=== PATIENT | female | born 1940 | race Caucasian/White ===

== ENCOUNTER 2017-09-28 07:03 | Day surgery (SDC) | payer MEDICARE ==
[~2017-09-28] VITALS: Ht 154.9 cm; Wt 70.3 kg
[~2017-09-28 07:03] MED LIST: ASPIR 8181 MG PO; GLIMEPIRIDE2 MG PO; LISINOPRIL10 MG PO; METFORMIN HCL500 MG PO; MULTIVITAMINS1 EAC7 PO; MYRBETRIQ50 MG PO; NITROFURANTOIN50 MG PO; PANTOPRAZOLE SO20 MG PO; PRAMIPEXOLE DI0.5 MG PO; SIMVASTATIN20 MG PO; STOOL SOFTENER100 MG PO; VITAMIN B-12100 MCG PO; VITAMIN C500 M5 PO; VITAMIN D50000 UNI1 PO; VITAMIN E400 UNI1 PO
--- NOTE | 2017-09-28 08:59 | NUR ---
09/28/17 0859 Cira Parker 0850 PT ARRIVED TO PACU ASLEEP, RESP EVEN AND UNLABORED. 0855 PT WOKE UP WITH STIMULI AND REORIENTED TO PACU. DENIES PAIN, BACK TO SLEEP.
--- NOTE | 2017-09-28 10:50 | OR ---
[facility] [address], [place] [address] Signed DATE OF OPERATION: 09/28/2017 SURGEON: Fabricio Benedict MD COLONOSCOPY REPORT PREOPERATIVE DIAGNOSES: 1. Brother with a history of colonic polyps. 2. Moderate pandiverticulosis. 3. Long redundant narrow colon. 4. Moderate internal hemorrhoids. PROCEDURE: Colonoscopy without biopsy. ESTIMATED BLOOD LOSS: None. INDICATIONS: Dalila is a 76-year-old female originally from [place], [place]. She is here now with her family. Her brother was known to have colonic polyps. Dalila is also known to have diverticulosis. Her last colonoscopy was more than 10 years ago while she lived in [place]. Consequently, her primary care provider asked her to come see me for a followup colonoscopy. She tells me she has no lower GI complaints. In the office, I gave Dalila a pamphlet on colonoscopy and we reviewed that together along with the risks including, but not limited to gas bloating, crampy abdominal pain, bleeding, perforation, requiring surgery, and missed diagnosis. We also discussed the need for IV conscious sedation. She had expressed understanding and wished to proceed. PROCEDURE NOTE: Dalila was taken into our endoscopy suite and placed in the left lateral decubitus position. She was given 8 mg of Versed and 150 mcg of fentanyl. A digital rectal exam was performed and this was unremarkable. The adult colonoscope was introduced and advanced under direct visualization of camera. Dalila is small of build and her colon is long, narrow and redundant. She also has pandiverticulosis. It took me a few minutes to get around the rectosigmoid junction and another few minutes to get up through the sigmoid colon and even then her left colon, even the transverse colon are pretty narrow and the diverticula continued. We have eventually made it around a difficult hepatic flexure and down into the cecum itself. Her prep was good. We took pictures throughout for photodocumentation. The scope was slowly withdrawn and she does have right-sided Electronically Signed By: FABRICIO BENEDICT MD 09/28/17 1050 PATIENT NAME: DALILA TURNER OPERATIVE REPORT DATE OF : 38 REPORT #: [id number] PHYSICIAN: FABRICIO BENEDICT MD PCP: BRIAN PARIKH MD REPORT IS CONFIDENTIAL AND NOT TO BE RELEASED WITHOUT AUTHORIZATION [facility] [address] [place] [id number] Signed diverticula. We eventually made our way back to the rectum and the rectum was unremarkable. Upon retroflexion of the scope, she does have moderate internal hemorrhoids. After this, the gas was suctioned out and the colonoscope removed. Dalila tolerated the procedure quite well. RECOMMENDATIONS: Dalila can follow up in 5 years for repeat colonoscopy due to her brother's history of colonic polyps. MD ZACARIAS Boss/IMANIL /[id number] cc: Brian Parikh MD Copies: BRIAN PARIKH MD ~ Electronically Signed By: FABRICIO BENEDICT MD 09/28/17 1050 PATIENT NAME: JOHNNYDALILA Flaquita OPERATIVE REPORT DATE OF : 38 REPORT #: [id number] PHYSICIAN: FABRICIO BENEDICT MD PCP: BRIAN PARIKH MD REPORT IS CONFIDENTIAL AND NOT TO BE RELEASED WITHOUT AUTHORIZATION
== END 2017-09-28 09:50 | disposition home or self-care (01) ==
LOC: DS 07:03 → OPS 07:03 → DS 08:15 → OPS 08:15
PROVIDERS: Colon & Rectal Surgery
PROC: 0DJD8ZZ Inspection of Lower Intestinal Tract, Via Natural or Artificial Opening Endoscopic (ICD-10-PCS; principal; 2017-09-28 08:15)
DX: Z12.11 Encounter for screening for malignant neoplasm of colon (principal); K64.8 Other hemorrhoids; K57.30 Diverticulosis of large intestine without perforation or abscess without bleeding; K63.89 Other specified diseases of intestine; I10 Essential (primary) hypertension; E78.5 Hyperlipidemia, unspecified; E55.9 Vitamin D deficiency, unspecified; E11.9 Type 2 diabetes mellitus without complications; D64.9 Anemia, unspecified; Z83.71 Family history of colonic polyps; Z79.82 Long term (current) use of aspirin; Z79.84 Long term (current) use of oral hypoglycemic drugs; Z79.899 Other long term (current) drug therapy
CPT/HCPCS: 99153; G0500; J2250; J3010; J7120

== ENCOUNTER 2023-06-10 11:53 | Day surgery (SDC) | payer MEDICARE, OTHER ==
[~2023-06-10 11:53] MED LIST changes: +PEPCID40 MG PO; +ROPINIROLE HCL0.5 MG PO
--- NOTE | 2023-06-10 16:01 | OR ---
[facility] [address] [place], [place] [address] Signed DATE OF OPERATION: 06/10/2023 SURGEON: Lesa Caldwell MD PREOPERATIVE DIAGNOSES: 1. A 2 cm well defined area of erythema, suspicious for bladder lesion. 2. History of pelvic organ prolapse, status post repair. 3. Recurrent urinary tract infections. POSTOPERATIVE DIAGNOSES: 1. No evidence of bladder lesion on cystoscopy today. 2. Recurrent urinary tract infection. 3. History of pelvic organ prolapse, status post repair. NAMES OF PROCEDURES: 1. Diagnostic cystoscopy. 2. Pelvic examination. ANESTHESIA: 10 mL of 2% lidocaine gel. DRAINS: None. SPECIMENS: None. INDICATIONS FOR PROCEDURE: Ms. Turner is a very pleasant 82-year-old female, who is very well known to me. She has a history of severe pelvic organ prolapse that had worsened to the point that she underwent definitive repair almost two years ago. Her prolapse had been promoting recurrent urinary tract infections for many years. Since her prolapse repair, the frequency of urinary tract infections has significantly diminished. She underwent diagnostic cystoscopy for evaluation of recurrent urinary tract infections approximately four months ago. At that time, there was a well circumscribed 2 cm area of erythema on the left lateral wall associated with a bladder diverticulum that appeared suspicious for possible bladder lesion. At this time, the patient elected to undergo repeat cystoscopy versus undergo cystoscopy with bladder biopsy at this time. She presents today to undergo repeat evaluation of this area of suspicion. Electronically Signed By: LESA CALDWELL MD 06/10/23 1601 PATIENT NAME: MEAGHAN TURNER OPERATIVE REPORT DATE OF : 38 REPORT #: [id number] PHYSICIAN: LESA CALDWELL MD PCP: MERLIN ESQUIVEL MD REPORT IS CONFIDENTIAL AND NOT TO BE RELEASED WITHOUT AUTHORIZATION [facility] [address] [place], [place] [address] Signed OPERATIVE FINDINGS: 1. On cystoscopy, there was no evidence of any overt papillary tumors or bladder stones. There is diffuse grade 2-3 bladder wall trabeculation including a small bladder diverticulum located on the left lateral wall of the bladder. The prior area of erythema on the left lateral wall is not seen on today's cystoscopy. In fact, there is no evidence of any suspicious areas of erythema on today's procedure. Bilateral ureteral orifices are in their normal anatomic location effluxing clear urine. 2. Pelvic examination reveals excellent apical support. She also has excellent posterior support after her repair. Anterior support is also quite good as well. DESCRIPTION OF PROCEDURE: After informed consent was obtained, the patient was taken back to the procedure room. She was placed in the dorsal lithotomy position and her genitalia were prepped and draped in a standard sterile fashion. A flexible cystoscope was passed through her urethra and into her bladder under direct visualization. Panendoscopic views of the bladder were then obtained. Please see above findings. I then slowly withdrew the camera to get an adequate look at her urethra. Once the camera was removed, the patient was straight cathed using an 18-Kiswahili red rubber catheter to completely empty her bladder. Pelvic examination was then performed. Please see above findings. The procedure was then terminated. The patient tolerated the procedure well without any complication. She will now be transferred to the postanesthesia care unit in stable condition. DISPOSITION: I discussed the details of today's procedure and my findings with the patient's daughter, Daniela today. I informed Daniela that I see no evidence of any suspicious areas of erythema in her bladder so that prior area of erythema must have been a result of transient bladder wall irritation. She seems to be emptying her bladder a lot better and the frequency of her recurrent urinary tract infections has diminished significantly. I answered all of the patient and her daughter's questions to their satisfaction. At this time, the patient will follow up on an as-needed basis. MD MERVAT Sousa/IMANIL /[id number] Electronically Signed By: LESA CALDWELL MD 06/10/23 1601 PATIENT NAME: MEAGHAN TURNER OPERATIVE REPORT DATE OF : 38 REPORT #: [id number] PHYSICIAN: LESA CALDWELL MD PCP: MERLIN ESQUIVEL MD REPORT IS CONFIDENTIAL AND NOT TO BE RELEASED WITHOUT AUTHORIZATION [facility] [address] [place] [id number] Signed Copies: ~ Electronically Signed By: LESA CALDWELL MD 06/10/23 1601 PATIENT NAME: MEAGHAN TURNER OPERATIVE REPORT DATE OF : 38 REPORT #: [id number] PHYSICIAN: LESA CALDWELL MD PCP: MERLIN ESQUIVEL MD REPORT IS CONFIDENTIAL AND NOT TO BE RELEASED WITHOUT AUTHORIZATION
== END 2023-06-10 14:00 | disposition home or self-care (01) ==
LOC: OPS 11:53 → DS 12:05 → OPS 13:00
PROVIDERS: ATTEND Urology
PROC: 0TJB8ZZ Inspection of Bladder, Via Natural or Artificial Opening Endoscopic (ICD-10-PCS; principal; 2023-06-10 13:00)
DX: N39.0 Urinary tract infection, site not specified (principal); N32.81 Overactive bladder; N32.3 Diverticulum of bladder
CPT/HCPCS: 51700; 52287

== ENCOUNTER 2024-12-16 20:59 | Emergency (ER) | payer MEDICARE, OTHER ==
[~2024-12-16] VITALS: Ht 154.9 cm; Wt 78.0 kg
[2024-12-16] MEDS ORDERED: DONEPEZIL HCL10 MG PO (21:46)
[2024-12-16] MEDS ORDERED: OXYBUTYNIN CHLO10 MG PO (21:46)
[2024-12-16] MEDS ORDERED: ESCITALOPRAM OXA5 MG PO (21:46)
[2024-12-16 22:36] LABS: BASOPHILS 0.1 % (0.1-1.2); EOSINOPHILS 0.3 % (0.7-5.8); HEMATOCRIT 35.6 % (34.1-44.9); HEMOGLOBIN 11.5 g/dL (11.2-15.7); LYMPHOCYTES 12.3 % (19.3-51.7); MCH 29.2 PG (25.6-32.2); MCHC 32.3 g/dL (32.2-35.5); MCV 90.4 fL (79.4-94.8); MONOCYTES 6.5 % (4.7-12.5); NEUTROPHILS 80.4 % (34.0-71.1); PLATELET COUNT 155 K/uL (182-369); RBC 3.94 M/uL (3.93-5.22)
[2024-12-16 22:43] LABS: CORONAVIRUS COVID-19 AG NEGATIVE (NEGATIVE); INFLUENZA A AG NEGATIVE (NEGATIVE); INFLUENZA B AG NEGATIVE (NEGATIVE)
[2024-12-16 22:50] LABS: ALBUMIN 3.2 g/dL (3.4-5.0); ALBUMIN/GLOBULIN RATIO 0.89 (1.1-2.4); BILIRUBIN, TOTAL 0.4 mg/dL (0.2-1.0); BUN/CREATININE RATIO 22.44 (6.0-28.6); CALCIUM 8.9 mg/dL (8.5-10.1); CREATININE, SERUM 1.47 mg/dL (0.55-1.02); PROTEIN, TOTAL 6.8 g/dL (6.4-8.2)
[2024-12-17 00:31] LABS: BILIRUBIN, URINE NEGATIVE (negative); BLOOD/HGB, URINE NEGATIVE (Negative); KETONE, URINE NEGATIVE (Negative); LEUK ESTERASE, URINE TRACE (negative); NITRITE, URINE NEGATIVE (negative); PH, URINE 5.5 (5-7)
[2024-12-17] MEDS ORDERED: LASIX20 MG PO (00:43)
[2024-12-17] MEDS ORDERED: METHYLPREDNISOLO4 M1 PO (00:43)
[2024-12-17] MEDS ORDERED: POTASSIUM CHLO10 MEQ PO (00:43)
[2024-12-17] MEDS ORDERED: DEXAMETHASONE SOD PHOS 10 MG/ML VIAL IV ONE (00:45)
[2024-12-17] MEDS ORDERED: DEXAMETHASONE SOD PHOS 10 MG/ML VIAL PO ONE (00:45)
[2024-12-17 00:49] LABS: BACTERIA, URINE 1+ /hpf (negative); CASTS, URINE NONE SEEN \\lpf; COLLECTION TYPE, URINE CLEAN CATCH; CRYSTALS, URINE NONE SEEN (0-1+); EPITHELIAL CELLS, URINE SQUAMOUS 2+ /lpf (0-1+); RED BLOOD CELLS, URINE 0-1 /hpf (0-5); REFLEX CULTURE, URINE No (No)
[2024-12-17 00:52] VITALS: BP 118/58
--- NOTE | 2024-12-17 12:17 | EKG ---
[facility] [address] [facility] [place], [place] [address] Signed Sinus rhythm Otherwise normal ECG Confirmed by Elva Pham DO ([id number]) on 12/17/2024 12:17:40 PM Electronically Signed By: ELVA PHAM DO 12/17/24 1217 PATIENT NAME: MEAGHAN TURNER Flaquita Electrocardiogram DATE OF : 38 PHYSICIAN: ELVA PHAM DO REPORT #: [id number] REPORT IS CONFIDENTIAL AND NOT TO BE RELEASED WITHOUT AUTHORIZATION
== END 2024-12-17 00:53 | disposition home or self-care (01) ==
LOC: ED 20:59
PROVIDERS: Internal Medicine
DX: J06.9 Acute upper respiratory infection, unspecified (principal); E11.9 Type 2 diabetes mellitus without complications; Z79.84 Long term (current) use of oral hypoglycemic drugs; Z79.82 Long term (current) use of aspirin; Z79.899 Other long term (current) drug therapy; Z87.891 Personal history of nicotine dependence
CPT/HCPCS: 36415; 71045; 80053; 81001; 83880; 84484; 85025; 93005; 93010; 99284-25; J1100